=== PATIENT | male | born 1990 | race Hispanic/Latino ===

== ENCOUNTER 2018-08-03 14:10 | Emergency (ER) | payer BC ==
[2018-08-03 14:35] VITALS: TEMP 98.6
[2018-08-03] MEDS ORDERED: Sodium Chloride 0.9% 1,000 ML IV STA (14:59)
--- NOTE | 2018-08-03 15:05 | ED PDOC ---
HPI: General Adult Time Seen by Provider: 08/03/18 14:38 Chief Complaint (Nursing): Dizziness/Lightheaded Chief Complaint (Provider): weakness, lightheaded, nosebleed History Per: Patient Onset/Duration Of Symptoms: Days (x3) Current Symptoms Are (Timing): Still Present Additional Complaint(s): Olaf Clark is a 27 year old male, with no significant past medical history , who presents to the emergency department complaining of generalized weakness for x3 days s/p nose surgery on Thursday for deviated septum. Patient reports feeling tired and states his nose has been bleeding, he is concerned symptoms are a result of blood loss. He called his surgeon, Dr. Mckeon, this morning who told him symptoms might be due to the Oxycodone. He last took it this morning at 06:00. Patient denies any chest pain, SOB or BALL. PMD: None Past Medical History Reviewed: Historical Data, Nursing Documentation, Vital Signs Vital Signs: Last Vital Signs Temp 98.6 F 08/03/18 14:32 Pulse 73 08/03/18 14:32 Resp 18 08/03/18 14:32 BP 131/70 08/03/18 14:32 Pulse Ox 100 08/03/18 15:09 - Medical History PMH: No Chronic Diseases - Surgical History Other surgeries: nasal surgery - Family History Family History: States: No Known Family Hx - Living Arrangements Living Arrangements: With Family - Social History Current smoker - smoking cessation education provided: No Alcohol: None Drugs: Denies - Home Medications Home Medications: Ambulatory Orders Medication Instructions Recorded Ondansetron ODT [Zofran ODT] 8 mg PO Q6 PRN #30 odt 07/31/18 - Allergies Allergies/Adverse Reactions: Allergies Allergy/AdvReac Type Severity Reaction Status Date / Time No Known Allergies Allergy Verified 08/03/18 14:32 Review of Systems ROS Statement: Except As Marked, All Systems Reviewed And Found Negative Constitutional: Positive for: Weakness (generalized) ENT: Positive for: Nose Pain Cardiovascular: Negative for: Chest Pain Respiratory: Negative for: Shortness of Breath Gastrointestinal: Negative for: Nausea, Vomiting Physical Exam - Reviewed Nursing Documentation Reviewed: Yes Vital Signs Reviewed: Yes - Physical Exam Appears: Positive for: Well, Non-toxic, No Acute Distress Head Exam: Positive for: ATRAUMATIC, NORMAL INSPECTION, NORMOCEPHALIC Skin: Positive for: Normal Color Eye Exam: Positive for: Normal appearance ENT: Positive for: Other (Yaw splint in place to nasal bridge. Draining tubes visualized in each nare with no active bleeding) Neck: Positive for: Painless ROM Cardiovascular/Chest: Positive for: Regular Rate, Rhythm. Negative for: Murmur Respiratory: Positive for: Normal Breath Sounds. Negative for: Respiratory Distress Extremity: Positive for: Normal ROM (upper and lower extremities). Negative for : Deformity, Swelling Neurologic/Psych: Positive for: Alert, Oriented. Negative for: Motor/Sensory Deficits - Laboratory Results Result Diagrams: 08/03/18 15:05 08/03/18 15:05 - ECG O2 Sat by Pulse Oximetry: 100 (RA) Pulse Ox Interpretation: Normal Medical Decision Making Medical Decision Making: Time: 14:38 Initial Impression: 27 y/o male with generalized weakness s/p nasal surgery Initial Plan: --CMP --CBC w/ differential --PTT --PT --Sodium Chloride 1,000 ml IV 1,000 mls/hr --Reevaluation --PO motrin Case was d/w Dr. Mckeon, patient's surgeon who states to stop oxycodone and antibiotics and continue with motrin only for pain. Patient is aware of all diagnostic testing results, all questions answered. Patient has follow-up next week with Dr. Mckeon. Scribe Attestation: Documented by Corey Esparza, acting as a scribe for Ca Chaidez PA-C Provider Scribe Attestation: All medical record entries made by the Scribe were at my direction and personally dictated by me. I have reviewed the chart and agree that the record accurately reflects my personal performance of the history, physical exam, medical decision making, and the department course for this patient. I have also personally directed, reviewed, and agree with the discharge instructions and disposition. Disposition - Clinical Impression Clinical Impression: Dizziness - Patient ED Disposition Is Patient to be Admitted: No Counseled Patient/Family Regarding: Studies Performed, Diagnosis, Need For Followup, Rx Given - Disposition Referrals: Machelle Mckeon MD [Medical Doctor] - Disposition: Routine/Home Disposition Time: 16:19 Condition: STABLE Additional Instructions: Stop taking oxycodone and antibiotics. Take 2-3 over the counter advil every 6 hrs for pain as needed. Rest and drink plenty of fluids. Follow up next week as scheduled with Dr. Mckeon. Instructions: Dizziness, Nonvertigo, (DC) Forms: [employer] (Mongolian) Results - Lab Results Lab Results: 08/03/18 08/03/18 08/03/18 15:05 15:05 15:05 WBC 6.0 D RBC 5.05 Hgb 15.7 Hct 45.0 MCV 89.2 MCH 31.0 MCHC 34.8 RDW 13.0 Plt Count 234 MPV 8.3 Neut % (Auto) 77.9 H Lymph % (Auto) 12.3 L [place] % (Auto) 9.1 Eos % (Auto) 0.3 Baso % (Auto) 0.4 Neut # (Auto) 4.7 Lymph # (Auto) 0.7 L [place] # (Auto) 0.6 Eos # (Auto) 0.0 Baso # (Auto) 0.0 PT 13.5 H INR 1.2 APTT 28.5 Sodium 143 Potassium 4.6 Chloride 101 Carbon Dioxide 34 H Anion Gap 13 BUN 14 Creatinine 0.8 Est GFR ( Amer) > 60 Est GFR (Non-Af Amer) > 60 Random Glucose 91 Calcium 10.5 H Total Bilirubin 0.6 AST 22 ALT 28 Alkaline Phosphatase 53 Total Protein 8.9 H Albumin 5.2 H Globulin 3.7 Albumin/Globulin Ratio 1.4
[2018-08-03 15:35] LABS: BASO % 0.4 % (0.0-2.0); EOS % 0.3 % (0.0-4.0); HEMOGLOBIN 15.7 g/dL (12.0-18.0); LYMPH # 0.7 K/uL (1.0-4.3); LYMPH % 12.3 % (20.0-40.0); MEAN CELL VOLUME 89.2 fl (80.0-94.0); MEAN CORPUSCULAR HGB CONC 34.8 g/dL (33.0-37.0); MEAN PLATELET VOLUME 8.3 fl (7.2-11.7); MONO # 0.6 K/uL (0.0-0.8); MONO % 9.1 % (0.0-10.0); NEUT # 4.7 K/uL (1.8-7.0); NEUT % 77.9 % (50.0-75.0); RBC 5.05 Mil/uL (4.40-5.90)
[2018-08-03 15:47] LABS: INR 1.2; PROTHROMBIN TIME 13.5 Seconds (9.8-13.1)
[2018-08-03 15:50] LABS: PARTIAL THROMBOPLASTIN TIME 28.5 Seconds (25.6-37.1)
[2018-08-03 15:54] LABS: ALB/GLOB RATIO 1.4 (1.0-2.1); ALBUMIN 5.2 g/dL (3.5-5.0); ALT/SGPT 28 U/L (21-72); AST/SGOT 22 U/L (17-59); BLOOD UREA NITROGEN 14 mg/dl (9-20); CALCIUM 10.5 mg/dL (8.4-10.2); GFR NON-AFRICAN AMERICAN > 60
[2018-08-03 16:51] VITALS: BP 128/68; PULSE 78; RESP 16; O2SAT 99
== END 2018-08-03 16:50 | disposition home or self-care (01) ==
LOC: H.ER 14:10
DX: M62.81 Muscle weakness (generalized) (principal); R42 Dizziness and giddiness; R04.0 Epistaxis
CPT/HCPCS: 80053; 85025; 85610; 85730; 96360; 99283; J7030